=== PATIENT | male | born 2000 | race Caucasian/White ===

== ENCOUNTER 2024-07-24 08:17 | Emergency (ER) | payer OTHER | END 2024-07-24 09:17 | disposition home or self-care (01) | LOC: ERS 08:17 | DX: S90.31XA Contusion of right foot, initial encounter (principal); S50.811A Abrasion of right forearm, initial encounter; F17.200 Nicotine dependence, unspecified, uncomplicated; V87.8XXA Person injured in other specified noncollision transport accidents involving motor vehicle (traffic), initial encounter; Y93.89 Activity, other specified; Y92.69 Other specified industrial and construction area as the place of occurrence of the external cause | CPT/HCPCS: 99283 ==

== ENCOUNTER 2024-09-20 04:05 | Emergency (ER) | payer OTHER | END 2024-09-20 04:52 | disposition home or self-care (01) | LOC: ERS 04:05 | DX: M79.671 Pain in right foot (principal); E78.5 Hyperlipidemia, unspecified; F17.290 Nicotine dependence, other tobacco product, uncomplicated; F17.210 Nicotine dependence, cigarettes, uncomplicated | CPT/HCPCS: 99283 ==